=== PATIENT | female | born 1990 | race African-American/Black ===

== ENCOUNTER 2025-02-19 17:22 | Emergency (ER) | payer MEDICARE, OTHER ==
--- NOTE | 2025-02-19 17:59 | ED ---
Recheck HPI - General Source: patient, RN notes reviewed Mode of arrival: ambulatory Limitations: no limitations <Immanuel Martin - Last Filed: 02/19/25 17:57> - General Source: patient, RN notes reviewed <Paula Morales - Last Filed: 02/19/25 23:24> - General Stated Complaint: jaundice,ETOH Time Seen by Provider: 02/19/25 17:37 - History of Present Illness Initial Comments: Quick note: This is a 34-year-old female with history of liver cirrhosis presenting for scleral icterus x 1 month. Patient states she was attending detox when she was sent to the ER for further evaluation due to presence of yellowing of eyes. Patient endorses some associated nausea and was given Zofran prior to ER arrival. Denies fever, chills, chest pain, dyspnea, abdominal pain, vomiting/diarrhea. (Immanuel Martin) 34-year-old female with history of liver cirrhosis and esophageal varices presenting for nausea/vomiting since last night with associated right upper quadrant abdominal pain. States she has been drinking approximately 1/5 a day for the past month. Last drink was yesterday. She went to check into [facility] around 2 PM today however was sent here for further evaluation. Reports this is how she feels when she detoxes however has never had the right upper quadrant pain before. Also reports dark red blood streaks in the vomit. States the right upper quadrant pain radiates to the back. States she has been dealing with scleral icterus for approximately 1 month. History of cholecystectomy. (Paula Morales) - Related Data Allergies Allergy/AdvReac Type Severity Reaction Status Date / Time No Known Allergies Allergy Verified 02/19/25 17:59 Review of Systems ROS Other: All systems not noted in ROS Statement are negative. <Immanuel Martin - Last Filed: 02/19/25 17:57> ROS Other: All systems not noted in ROS Statement are negative. <Paula Morales - Last Filed: 02/19/25 23:24> ROS Statement: Those systems with pertinent positive or pertinent negative responses have been documented in the HPI. General Exam <Immanuel Martin - Last Filed: 02/19/25 17:57> General appearance: alert, in no apparent distress Head exam: Present: atraumatic, normocephalic, normal inspection Eye exam: Present: PERRL, EOMI, scleral icterus. Absent: normal appearance, conjunctival injection, periorbital swelling ENT exam: Absent: normal exam (Dental caries throughout oral cavity) Respiratory exam: Present: normal lung sounds bilaterally. Absent: respiratory distress, wheezes, rales, rhonchi, stridor Cardiovascular Exam: Present: regular rate, normal rhythm, normal heart sounds. Absent: systolic murmur, diastolic murmur, rubs, gallop, clicks GI/Abdominal exam: Present: soft, normal bowel sounds. Absent: distended, tenderness, guarding, rebound, rigid Back exam: Present: normal inspection, full ROM. Absent: tenderness, CVA tenderness (R), CVA tenderness (L) Neurological exam: Present: alert, oriented X3 Psychiatric exam: Present: normal affect, normal mood Skin exam: Present: warm, dry, intact, normal color. Absent: rash <Paula Morales - Last Filed: 02/19/25 23:24> - General Exam Comments Initial Comments: Visual Physical Exam Vital signs reviewed General: Well-appearing, nontoxic, no acute distress. Head: Normocephalic, atraumatic Eyes: PERRLA, EOMI. Scleral icterus noted ENT: Airway patent Chest: Nonlabored breathing Skin: No visual rash, normal skin tone Neuro: Alert and oriented 3 Musculoskeletal: No gross abnormalities (Immanuel Martin) Course Vital Signs 02/19/25 17:56 Temperature 98.7 F Pulse Rate 76 Respiratory 18 Rate Blood Pressure 129/70 O2 Sat by Pulse 99 Oximetry Medical Decision Making <Immanuel Martin - Last Filed: 02/19/25 17:57> - Lab Data Result diagrams: 02/19/25 21:25 02/19/25 21:25 <Paula Morales - Last Filed: 02/19/25 23:24> - Medical Decision Making I completed the quick note portion of this chart signed RAFITA Dodd (Immanuel Martin) Was pt. sent in by a medical professional or institution (LITA Theodore, FRONT END APPLICATION DEVELOPER, urgent care, hospital, or fpc...) When possible be specific @ -Sent from [place] Did you speak to anyone other than the patient for history (EMS, parent, family, police, friend...)? What history was obtained from this source @ -No Did you review nursing and triage notes (agree or disagree)? Why? @ -I reviewed and agree with nursing and triage notes Were old charts reviewed (outside hosp., previous admission, EMS record, old EKG, old radiological studies, urgent care reports/EKG's, fpc records)? Report findings @ -No old charts were reviewed Differential Diagnosis (chest pain, altered mental status, abdominal pain women, abdominal pain men, vaginal bleeding, weakness, fever, dyspnea, syncope, headache, dizziness, GI bleed, back pain, seizure, CVA, palpatations, mental health, musculoskeletal)? @ -Differential Abdominal Pain Women: Appendicitis, Cholecystitis, diverticulosis, ischemic bowel, pancreatitis, hepatitis, UTI, gastroenteritis, AAA, incarcerated hernia, bowel obstruction, constipation, inflammatory bowel, hepatitis, peptic ulcer disease, splenic infarction, perforated viscus, vulvitis, ovarian torsion, PID, kidney stone, placenta abruption, this is not meant to be an all-inclusive list EKG interpreted by me (3pts min.). @ -None done X-rays interpreted by me (1pt min.). @ -None done CT interpreted by me (1pt min.). @ -None done U/S interpreted by me (1pt. min.). @ -Ultrasound right upper quadrant reveals no acute process, hepatic steatosis What testing was considered but not performed or refused? (CT, X-rays, U/S, labs)? Why? @ -None What meds were considered but not given or refused? Why? @ -None Did you discuss the management of the patient with other professionals (professionals i.e. , PA, FRONT END APPLICATION DEVELOPER, lab, RT, psych nurse, social welfare research worker, investor relations associate, teacher, welfare officer, disease case manager rn)? Give summary @ -I spoke with Dr. Sharon IBARRA physician from [facility] who accepts transfer for management of alcoholic cirrhosis/hepatitis Was smoking cessation discussed for >3mins.? @ -No Was critical care preformed (if so, how long)? @ -No Were there social determinants of health that impacted care today? How? (Homelessness, low income, unemployed, alcoholism, drug addiction, transportation, low edu. Level, literacy, decrease access to med. care, intermediate, rehab)? @ -No Was there de-escalation of care discussed even if they declined (Discuss DNR or withdrawal of care, Hospice)? DNR status @ -No What co-morbidities impacted this encounter? (DM, HTN, Smoking, COPD, CAD, Cancer, CVA, ARF, Chemo, Hep., AIDS, mental health diagnosis, sleep apnea, morbid obesity)? @ -Alcoholic cirrhosis, esophageal varices Was patient admitted / discharged? Hospital course, mention meds given and route, prescriptions, significant lab abnormalities, going to OR and other pertinent info. @ - transferred. 34-year-old female with history of esophageal varices and alcoholic cirrhosis presenting for nausea/vomiting x 1 day with associated right upper quadrant abdominal pain. Last drink was yesterday. There are dark red streaks of blood in the vomit. Patient appears anxious with severe scleral icterus. Abdomen soft and nonsurgical. Provided with IV fluids and Ativan for likely alcohol withdrawal. Provided with dose of Protonix for upper GI bleed. Lab work remarkable for bilirubin of 18, hemoglobin 7.1, platelets 47, INR 2, magnesium 0.9. Patient was started on magnesium as well as octreotide and simvastatin per Dr. Herrera. Patient will be transferred to [facility] for GI management of alcoholic cirrhosis/hepatitis as patient is high risk due to history of esophageal varices. Case was discussed with my ED attending Dr. Merino. Undiagnosed new problem with uncertain prognosis? @ -No Drug Therapy requiring intensive monitoring for toxicity (Heparin, Nitro, Insulin, Cardizem)? @ -No Were any procedures done? @ -No Diagnosis/symptom? @ -Alcoholic cirrhosis/hepatitis Acute, or Chronic, or Acute on Chronic? @ -Acute Uncomplicated (without systemic symptoms) or Complicated (systemic symptoms)? @ -Complicated Side effects of treatment? @ -No Exacerbation, Progression, or Severe Exacerbation? @ -No Poses a threat to life or bodily function? How? (Chest pain, [place], [place], pneumonia, PE, COPD, DKA, ARF, appy, cholecystitis, CVA, Diverticulitis, Homicidal, Suicidal, threat to staff... and all critical care pts) @ -Yes, risk of esophageal varices rupture (Paula Morales) - Lab Data Lab Results 02/19/25 02/19/25 02/19/25 Range/Units 21:25 21: 21: WBC 6.71 (4.50-10.00) 10*3/uL RBC 1.91 L (4.10-5.20) 10*6/uL Hgb 7.1 L (12.0-15.0) g/dL Hct 20.1 L (37.2-46.3) % MCV 105.2 H (80.0-97.0) fL MCH 37.2 H (27.0-32.0) pg MCHC 35.3 (32.0-37.0) g/dL Plt Count 47 L (140-440) 10*3/uL MPV 11.1 (9.5-12.2) fL Immature Gran % (Auto) 0.3 % Neutrophils % 71.3 % Lymphocytes % 20.0 % Monocytes % 7.2 % Eosinophils % 0.6 % Basophils % 0.6 % Immature Gran # 0.02 (0.00-0.04) 10*3/uL Neutrophils # 4.79 (1.80-7.70) 10*3/uL Lymphocytes # 1.34 (0.90-5.00) 10*3/uL Monocytes # 0.48 (0.20-1.00) 10*3/uL Eosinophils # 0.04 (0.04-0.35) 10*3/uL Basophils # 0.04 (0.00-0.10) 10*3/uL Manual Slide Review Performed Anisocytosis (manual) Present Crenated Cell Present PT (10.0-12.5) sec INR (<1.2) APTT (22.0-30.0) sec Sodium 139 (137-145) mmol/L Potassium 3.3 L (3.5-5.1) mmol/L Chloride 98 (98-107) mmol/L Carbon Dioxide 27 (22-30) mmol/L Anion Gap 14 mmol/L BUN 10 (7-17) mg/dL Creatinine 0.54 (0.52-1.04) mg/dL Est GFR (CKD-EPI)AfAm >90 (>60 ml/min/1.73 sqM) Est GFR (CKD-EPI)NonAf >90 (>60 ml/min/1.73 sqM) Glucose 101 H (74-99) mg/dL Plasma Lactic Acid Scott 1.3 (0.7-2.0) mmol/L Calcium 8.8 (8.4-10.2) mg/dL Phosphorus 3.5 (2.5-4.5) mg/dL Magnesium 0.9 L* (1.6-2.3) mg/dL Total Bilirubin 18.6 H* (0.2-1.3) mg/dL Conjugated Bilirubin 3.5 H (0.0-0.3) mg/dL Unconjugated Bilirubin 11.4 H (0.0-1.1) mg/dL Delta Bilirubin 3.7 H (0.0-0.2) mg/dL AST 129 H (14-36) U/L ALT 42 H (4-34) U/L Alkaline Phosphatase 139 H (38-126) U/L Total Protein 9.7 H (6.3-8.2) g/dL Albumin 3.9 (3.5-5.0) g/dL Lipase 300 (23-300) U/L Serum Alcohol <10 mg/dL 02/19/25 Range/Units 21:25 WBC (4.50-10.00) 10*3/uL RBC (4.10-5.20) 10*6/uL Hgb (12.0-15.0) g/dL Hct (37.2-46.3) % MCV (80.0-97.0) fL MCH (27.0-32.0) pg MCHC (32.0-37.0) g/dL Plt Count (140-440) 10*3/uL MPV (9.5-12.2) fL Immature Gran % (Auto) % Neutrophils % % Lymphocytes % % Monocytes % % Eosinophils % % Basophils % % Immature Gran # (0.00-0.04) 10*3/uL Neutrophils # (1.80-7.70) 10*3/uL Lymphocytes # (0.90-5.00) 10*3/uL Monocytes # (0.20-1.00) 10*3/uL Eosinophils # (0.04-0.35) 10*3/uL Basophils # (0.00-0.10) 10*3/uL Manual Slide Review Anisocytosis (manual) Crenated Cell PT 20.5 H (10.0-12.5) sec INR 2.0 H (<1.2) APTT 37.9 H (22.0-30.0) sec Sodium (137-145) mmol/L Potassium (3.5-5.1) mmol/L Chloride (98-107) mmol/L Carbon Dioxide (22-30) mmol/L Anion Gap mmol/L BUN (7-17) mg/dL Creatinine (0.52-1.04) mg/dL Est GFR (CKD-EPI)AfAm (>60 ml/min/1.73 sqM) Est GFR (CKD-EPI)NonAf (>60 ml/min/1.73 sqM) Glucose (74-99) mg/dL Plasma Lactic Acid Scott (0.7-2.0) mmol/L Calcium (8.4-10.2) mg/dL Phosphorus (2.5-4.5) mg/dL Magnesium (1.6-2.3) mg/dL Total Bilirubin (0.2-1.3) mg/dL Conjugated Bilirubin (0.0-0.3) mg/dL Unconjugated Bilirubin (0.0-1.1) mg/dL Delta Bilirubin (0.0-0.2) mg/dL AST (14-36) U/L ALT (4-34) U/L Alkaline Phosphatase (38-126) U/L Total Protein (6.3-8.2) g/dL Albumin (3.5-5.0) g/dL Lipase (23-300) U/L Serum Alcohol mg/dL Disposition <Immanuel Martin - Last Filed: 02/19/25 17:57> Time of Disposition: 23:23 - Out of Hospital Transfer - Req. Specs Out of Hospital Transfer - Requested Specifics: Other Emergency Center ([facility]) <Paula Morales - Last Filed: 02/19/25 23:24> Clinical Impression: Alcoholic cirrhosis of liver Disposition: OTHER INSTITUTION NOT DEFINED Referrals: None,Stated [Primary Care Provider] - 1-2 days
[2025-02-19 18:00] VITALS: RESP 18; TEMP 98.7
[2025-02-19] MEDS: LORazepam 2 MG/ML INJ IV STA (21:46)
[2025-02-19] MEDS: SODIUM CHLORIDE 0.9% 1,000 ML IV STA (21:47)
[2025-02-19 21:51] LABS: Basophils # (A) 0.04 10*3/uL (0.00-0.10); Basophils % (A) 0.6 %; Eosinophils # (A) 0.04 10*3/uL (0.04-0.35); Eosinophils % (A) 0.6 %; HCT 20.1 % (37.2-46.3); HGB 7.1 g/dL (12.0-15.0); Lymphocytes # (A) 1.34 10*3/uL (0.90-5.00); MCH 37.2 pg (27.0-32.0); MCHC 35.3 g/dL (32.0-37.0); MCV 105.2 fL (80.0-97.0); Mean Platelet Volume 11.1 fL (9.5-12.2); Monocytes # (A) 0.48 10*3/uL (0.20-1.00); Monocytes % (A) 7.2 %; Neutrophils # (A) 4.79 10*3/uL (1.80-7.70); Neutrophils % (A) 71.3 %; RBC 1.91 10*6/uL (4.10-5.20); RDW 20.6 % (11.5-14.5); WBC 6.71 10*3/uL (4.50-10.00)
[2025-02-19 22:02] LABS: Partial Thromboplastin Time 37.9 sec (22.0-30.0); Prothrombin Time 20.5 sec (10.0-12.5)
[2025-02-19 22:08] LABS: ALT 42 U/L (4-34); AST 129 U/L (14-36); African American GFR (CKD) >90 (>60 ml/min/1.73 sqM); Albumin 3.9 g/dL (3.5-5.0); Alcohol <10 mg/dL; Alkaline Phosphatase 139 U/L (38-126); Anion Gap 14 mmol/L; Bilirubin, Conjugated 3.5 mg/dL (0.0-0.3); Bilirubin, Delta 3.7 mg/dL (0.0-0.2); Bilirubin,Unconjugated 11.4 mg/dL (0.0-1.1); Blood Urea Nitrogen 10 mg/dL (7-17); Calcium 8.8 mg/dL (8.4-10.2); Carbon Dioxide 27 mmol/L (22-30); Chloride 98 mmol/L (98-107); Glucose 101 mg/dL (74-99); Lipase 300 U/L (23-300); Non-African American GFR(CKD) >90 (>60 ml/min/1.73 sqM); Phosphorus 3.5 mg/dL (2.5-4.5); Potassium 3.3 mmol/L (3.5-5.1); Sodium 139 mmol/L (137-145); Total Protein 9.7 g/dL (6.3-8.2)
[2025-02-19 22:12] LABS: Magnesium 0.9 mg/dL (1.6-2.3); Total Bilirubin 18.6 mg/dL (0.2-1.3)
[2025-02-19 22:13] LABS: Anisocytosis (M) Present; Platelet Count 47 10*3/uL (140-440)
[2025-02-19 22:18] LABS: Crenated RBC Present
--- NOTE | 2025-02-19 22:54 | US ---
EXAMINATION TYPE: US abdomen limited DATE OF EXAM: 02/19/2025 COMPARISON: NONE CLINICAL INDICATION: Female, 34 years old with history of RUQ abd pain; patient states ruq pain. Naus ea/ vomiting. Hx cholecystectomy. heavy alcohol use, last drank yesterday TECHNIQUE: Grayscale and color Doppler imaging of the right upper quadrant was performed. FINDINGS: EXAM MEASUREMENTS: Liver Length: 13.3 cm Gallbladder Wall: Surgically absent CBD: 0.7 cm Right Kidney: 12.0 x 3.1 x 6.5 cm LABORATORY MANAGER NOTES:slightly limited due to midline gas Pancreas: visualized portions appear slightly heterogeneous Liver: increased echogenicity Gallbladder: Surgically absent Evidence for sonographic Medina's sign: no CBD: CHD: 0.4cm, CBD 0.7cm. wnl post cholecystectomy Right Kidney: wnl IMPRESSION: 1. No evidence for acute process. 2. Hepatic steatosis. [facility] Jacqueline Champion, , 02/19/2025 10:52 PM
[2025-02-19] MEDS: ATORVASTATIN 40 MG TAB PO STA (23:32)
[2025-02-19] MEDS: PANTOPRAZOLE 40 MG/10 ML VIAL IVP STA (23:32)
[2025-02-19] MEDS: OCTREOTIDE 100 MCG/ML INJ IVP STA (23:33)
[2025-02-19] MEDS: MAGNESIUM SULFATE-D5W PMX 1 GM in DEXTROSE/WATER 1 100ML.BAG IVPB SCH (23:34)
[2025-02-20 00:30] VITALS: BP 110/78; PULSE 80
== END 2025-02-20 00:30 | disposition other institution (70) ==
LOC: EC 17:22
DX: K70.30 Alcoholic cirrhosis of liver without ascites (principal); Z90.49 Acquired absence of other specified parts of digestive tract
CPT/HCPCS: 36415; 80053; 82248; 83605; 83690; 83735; 84100; 85025; 85610; 85730; 80320; 76705; 99285; 96365; 96366; 96375; 96361; J2060; J2354; J3475; J2470